=== PATIENT | male | born 1965 | race Caucasian/White ===

== ENCOUNTER 2018-08-23 11:31 | Inpatient (IN) | payer SELFPAY ==
[2018-08-23 11:48] VITALS: BMI 37.4
[2018-08-23] MEDS ORDERED: Morphine 4 MG/ML VIAL ONE (13:28)
[2018-08-23 13:30] LABS: BASO % 0.4 % (0.0-2.0); EOS # 0.3 K/uL (0.0-0.7); EOS % 4.3 % (0.0-4.0); HEMOGLOBIN 15.5 g/dL (12.0-18.0); LYMPH # 2.9 K/uL (1.0-4.3); LYMPH % 39.5 % (20.0-40.0); MEAN CELL VOLUME 91.6 fl (80.0-94.0); MEAN CORPUSCULAR HEMOGLOBIN 31.2 pg (27.0-31.0); MEAN CORPUSCULAR HGB CONC 34.1 g/dL (33.0-37.0); MEAN PLATELET VOLUME 8.4 fl (7.2-11.7); MONO # 0.7 K/uL (0.0-0.8); MONO % 9.6 % (0.0-10.0); NEUT # 3.3 K/uL (1.8-7.0); NEUT % 46.2 % (50.0-75.0); NRBC % 0.2 % (0.0-0.0); RBC 4.97 Mil/uL (4.40-5.90); RED CELL DISTRIBUTION WIDTH 14.1 % (11.5-14.5); WHITE BLOOD COUNT 7.2 K/uL (4.8-10.8)
[2018-08-23] MEDS ORDERED: Morphine 4 MG/ML VIAL IVP STA (13:34)
[2018-08-23 13:36] LABS: INR 0.9; PROTHROMBIN TIME 10.7 Seconds (9.8-13.1)
--- NOTE | 2018-08-23 13:50 | RAD ---
Date of service: 08/23/2018 HISTORY: possible admission COMPARISON: No prior. FINDINGS: LUNGS: No active pulmonary disease. PLEURA: No significant pleural effusion identified, no pneumothorax apparent. CARDIOVASCULAR: No aortic atherosclerotic calcification present OSSEOUS STRUCTURES: No significant abnormalities. VISUALIZED UPPER ABDOMEN: Normal. OTHER FINDINGS: None. IMPRESSION: No active disease.
--- NOTE | 2018-08-23 14:06 | ED PDOC ---
HPI: Back Time Seen by Provider: 08/23/18 12:36 Chief Complaint (Nursing): Back Pain Chief Complaint (Provider): Back Pain History Per: Patient History/Exam Limitations: no limitations Additional Complaint(s): Jeremy Rodriguez is a 53 year old male with no past medical history, presents to the emergency department with intractable pain caused by herniated disk. Patient follows up with Dr. Gonzales who advised him to come to the ED. Patient was found to be lying flat on stretcher in the ED. PMD: Dr. Gonzales Past Medical History Reviewed: Historical Data, Nursing Documentation, Vital Signs Vital Signs: Last Vital Signs Temp 97.8 F 08/23/18 12:23 Pulse 88 08/23/18 12:23 Resp 20 08/23/18 12:23 BP 111/70 08/23/18 12:23 Pulse Ox 98 08/23/18 12:23 - Medical History PMH: No Chronic Diseases - Surgical History Surgical History: No Surg Hx - Family History Family History: States: Unknown Family Hx - Immunization History Hx Tetanus Toxoid Vaccination: No Hx Influenza Vaccination: No Hx Pneumococcal Vaccination: No - Home Medications Home Medications: Ambulatory Orders Medication Instructions Recorded Celecoxib [celeBREX] 200 mg PO DAILY PRN 08/23/18 Dapagliflozin Propanediol [Farxiga] 10 mg PO DAILY 08/23/18 Fenofibrate,Micronized 200 mg PO HS 08/23/18 [Fenofibrate] Losartan [Cozaar] 50 mg PO DAILY 08/23/18 Metoprolol Tartrate [Lopressor] 100 mg PO Q12 08/23/18 Milk Thistle Seed Extract [Milk 1 cap PO DAILY 08/23/18 Thistle] [place]-3/Dha/Epa/Fish Oil [Epa-Dha 1 cap PO DAILY 08/23/18 720 Softgel] amLODIPine [Norvasc] 5 mg PO DAILY 08/23/18 metFORMIN [glucOPHAGE] 500 mg PO DAILY 08/23/18 traMADol [Ultram] 50 mg PO Q6 PRN 08/23/18 - Allergies Allergies/Adverse Reactions: Allergies Allergy/AdvReac Type Severity Reaction Status Date / Time No Known Allergies Allergy Verified 08/23/18 12:23 Review of Systems ROS Statement: Except As Marked, All Systems Reviewed And Found Negative Musculoskeletal: Positive for: Other (intractable pain caused by herniated disk) Physical Exam - Reviewed Nursing Documentation Reviewed: Yes Vital Signs Reviewed: Yes - Physical Exam Appears: Positive for: Non-toxic, In Acute Distress (lying flat on stretcher) Head Exam: Positive for: ATRAUMATIC, NORMOCEPHALIC Skin: Positive for: Normal Color, Warm, Dry Eye Exam: Positive for: Normal appearance, EOMI, PERRL ENT: Positive for: Normal ENT Inspection Neck: Positive for: Normal, Painless ROM, Supple Cardiovascular/Chest: Positive for: Regular Rate, Rhythm. Negative for: Murmur Respiratory: Positive for: Normal Breath Sounds. Negative for: Respiratory Distress Gastrointestinal/Abdominal: Positive for: Normal Exam, Soft. Negative for: Tenderness Back: Positive for: Normal Inspection. Negative for: L CVA Tenderness, R CVA Tenderness, Vertebral Tenderness Extremity: Positive for: Normal ROM (of both legs ), Other (Flexion at the hip worsens pain) - Laboratory Results Result Diagrams: 08/23/18 13:15 08/23/18 14:10 - ECG ECG Rhythm: Positive for: Sinus Rhythm (normal) O2 Sat by Pulse Oximetry: 98 (RA) Pulse Ox Interpretation: Normal Medical Decision Making Medical Decision Making: Initial Time: 12:40 A/P: Patient is experiencing intractable pain due to herniated disk and will be admitted for pain control. Provider spoke with Dr. Diggs who recommends Morphine and Flexeril for pain control. Plan: --EKG --Type and Screen --BMP --CBC with differential --PPT --PT --Chest X-ray --Urinalysis --Flexeril 10 mg PO --Morphine 4 mg IVP Time: 13:46 Chest X-ray FINDINGS: LUNGS: No active pulmonary disease. PLEURA: No significant pleural effusion identified, no pneumothorax apparent. CARDIOVASCULAR: No aortic atherosclerotic calcification present OSSEOUS STRUCTURES: No significant abnormalities. VISUALIZED UPPER ABDOMEN: Normal. OTHER FINDINGS: None. IMPRESSION: No active disease. Scribe Attestation: Documented by Poncho Mancia, acting as a scribe for Annie Gong MD. Provider Scribe Attestation: All medical record entries made by the Scribe were at my direction and personally dictated by me. I have reviewed the chart and agree that the record accurately reflects my personal performance of the history, physical exam, medical decision making, and the department course for this patient. I have also personally directed, reviewed, and agree with the discharge instructions and disposition.
[2018-08-23 14:43] LABS: BLOOD UREA NITROGEN 18 mg/dl (9-20); CALCIUM 9.4 mg/dL (8.4-10.2); GFR NON-AFRICAN AMERICAN > 60
[2018-08-23 15:02] LABS: URINE BILIRUBIN NEGATIVE (NEGATIVE); URINE BLOOD NEGATIVE (NEGATIVE); URINE CLARITY CLEAR (Clear); URINE COLOR STRAW (YELLOW); URINE GLUCOSE (UA) >=500 mg/dL (Normal); URINE LEUKOCYTE ESTERASE NEG Leu/uL (Negative); URINE PROTEIN NEGATIVE (NEGATIVE); URINE UROBILINOGEN 0.2-1.0 mg/dL (0.2-1.0)
--- NOTE | 2018-08-23 15:58 | CARD ---
APPROVED REPORT Date of service: 08/23/2018 EKG Measurement Heart [id number] <Conclusion> Normal sinus rhythm Normal ECG
[2018-08-24] MEDS ORDERED: Lactated Ringer's 1,000 ML IV SCH ×3 (05:30→15:00)
[2018-08-24] MEDS ORDERED: Absorbable Gelatin Sponge Size 12-7 ONE (07:29)
[2018-08-24] MEDS ORDERED: Thrombin Topical 5,000 Int Units Spray Kit ONE (07:29)
[2018-08-24] MEDS ORDERED: Lidocaine 1% w Epi 1:100,000 Inj ONE (07:29)
[2018-08-24] MEDS ORDERED: Bupivacaine HCl 0.25% PF (30 ml) Inj ONE (07:29)
--- NOTE | 2018-08-24 08:50 | CP.PCM.CON ---
History of Present Illness - History of Present Illness History of Present Illness: Neurosurgical consult: Dr. Gonzales Patient is a 53 y/o male with PMH of HTN, HLD and NIDDM who presents with severe lower back pain radiating to the RLE. He has has non-traumatic chronic lower back pain for many years which has progressively worsened over the past few months. The pain is constant, sharp and located at the right lower back. The pain is associated with frequent numbness and tingling traveling down RLE. His symptoms have prevented him from performing his usual activities as walking, sitting and standing. He has failed conservative means with oral medications/narcotics and physical therapy. He denies any saddle paresthesias or bowel/bladder dysfunction. He also denies CP/SOB/N/V/D/fever/dysuria/melena. Review of Systems - Review of Systems All systems: reviewed and no additional remarkable complaints except Review of Systems: as per HPI Past Patient History - Past Medical History & Family History Past Medical History?: Yes Past Family History: Reviewed and not pertinent - Past Social History Smoking Status: Former Smoker Alcohol: None Drugs: Denies - CARDIAC Hx Cardiac Disorders: Yes Hx Hypercholesterolemia: Yes Hx Hypertension: Yes - PULMONARY Hx Respiratory Disorders: No - HEENT Hx HEENT Problems: No - RENAL Hx Chronic Kidney Disease: No - ENDOCRINE/METABOLIC Hx Endocrine Disorders: Yes Other/Comment: pre/dm - HEMATOLOGICAL/ONCOLOGICAL Hx Blood Disorders: No - INTEGUMENTARY Hx Dermatological Problems: No - MUSCULOSKELETAL/RHEUMATOLOGICAL Hx Musculoskeletal Disorders: Yes Hx Falls: No Hx Herniated Disk: Yes - GASTROINTESTINAL Hx Gastrointestinal Disorders: No - GENITOURINARY/GYNECOLOGICAL Hx Genitourinary Disorders: No - PSYCHIATRIC Hx Psychophysiologic Disorder: No Hx Substance Use: No - SURGICAL HISTORY Hx Surgeries: No - ANESTHESIA Hx Anesthesia: No Hx Anesthesia Reactions: No Hx Malignant Hyperthermia: No Meds Allergies/Adverse Reactions: Allergies Allergy/AdvReac Type Severity Reaction Status Date / Time No Known Allergies Allergy Verified 08/23/18 12:23 - Medications Medications: Current Medications Lactated Ringer's (Lactated Ringer's) 1,000 mls @ 60 mls/hr IV .[id number] [facility] Last Admin: 08/24/18 06:15 Dose: 60 mls/hr Physical Exam - Constitutional Appears: Well, No Acute Distress - Head Exam Head Exam: ATRAUMATIC, NORMOCEPHALIC - Eye Exam Eye Exam: EOMI, Normal appearance, PERRL - ENT Exam ENT Exam: Mucous Membranes Moist - Respiratory Exam Respiratory Exam: Clear to Auscultation Bilateral, NORMAL BREATHING PATTERN - Cardiovascular Exam Cardiovascular Exam: +S1, +S2 - GI/Abdominal Exam GI & Abdominal Exam: Soft. absent: Tenderness - Back Exam Additional comments: all CN intact no lesions, no masses, no erythema midline tenderness, R paraspinal tenderness sensation diminished to R SP/DP/TN, intact L side motor intact EHL/FHL/TA/G b/l, 4/5 R HF/Q +R SLR in supine position neg clonus Results - Vital Signs Recent Vital Signs: Last Vital Signs Temp 98.1 F 08/24/18 08:19 Pulse 54 L 08/24/18 08:19 Resp 20 08/24/18 08:19 BP 133/73 08/24/18 08:19 Pulse Ox 98 08/24/18 08:19 - Labs Result Diagrams: 08/23/18 13:15 08/23/18 14:10 Labs: Laboratory Results - last 24 hr 08/23/18 08/23/18 08/23/18 13:15 13:15 13:15 WBC 7.2 RBC 4.97 Hgb 15.5 Hct 45.5 MCV 91.6 MCH 31.2 H MCHC 34.1 RDW 14.1 Plt Count 266 MPV 8.4 Neut % (Auto) 46.2 L Lymph % (Auto) 39.5 [place] % (Auto) 9.6 Eos % (Auto) 4.3 H Baso % (Auto) 0.4 Neut # (Auto) 3.3 Lymph # (Auto) 2.9 [place] # (Auto) 0.7 Eos # (Auto) 0.3 Baso # (Auto) 0.0 PT 10.7 INR 0.9 APTT 37.0 Sodium Potassium Chloride Carbon Dioxide Anion Gap BUN Creatinine Est GFR ( Amer) Est GFR (Non-Af Amer) Random Glucose Calcium Urine Color Urine Clarity Urine pH Ur Specific [place] Urine Protein Urine Glucose (UA) Urine Ketones Urine Blood Urine Nitrate Urine Bilirubin Urine Urobilinogen Ur Leukocyte Esterase Urine Microscopic WBC Blood Type O POSITIVE Blood Type Confirm Antibody Screen Negative BBK History Checked No verified bt 08/23/18 08/23/18 08/23/18 14:10 14:42 15:01 WBC RBC Hgb Hct MCV MCH MCHC RDW Plt Count MPV Neut % (Auto) Lymph % (Auto) [place] % (Auto) Eos % (Auto) Baso % (Auto) Neut # (Auto) Lymph # (Auto) [place] # (Auto) Eos # (Auto) Baso # (Auto) PT INR APTT Sodium 139 Potassium 4.3 Chloride 110 H Carbon Dioxide 21 L Anion Gap 12 BUN 18 Creatinine 0.8 Est GFR ( Amer) > 60 Est GFR (Non-Af Amer) > 60 Random Glucose 87 Calcium 9.4 Urine Color Straw Urine Clarity Clear Urine pH 6.0 Ur Specific [place] 1.015 Urine Protein Negative Urine Glucose (UA) >=500 Urine Ketones Negative Urine Blood Negative Urine Nitrate Negative Urine Bilirubin Negative Urine Urobilinogen 0.2-1.0 Ur Leukocyte Esterase Neg Urine Microscopic WBC < 1 Blood Type Blood Type Confirm O POSITIVE Antibody Screen BBK History Checked Assessment & Plan (1) Lumbar spondylosis Assessment and Plan: -Recommend OR today for lumbar microdiscectomy -NPO -Risks/benefits/alternatives were explained to patient who understands and agrees to proceed with above procedure -above d/w Dr. Gonzales in agreement Status: Acute
[2018-08-24] MEDS ORDERED: Succinylcholine 200 mg/10 ml Inj IV ONE (10:56)
[2018-08-24] MEDS ORDERED: Rocuronium 10 mg/ml (5 ml) ONE (10:56)
[2018-08-24] MEDS ORDERED: Phenylephrine 10 mg/ml Inj ONE (10:56)
[2018-08-24] MEDS ORDERED: Propofol 10 mg/ml Inj (20 ML) ONE ×2 (10:56→13:31)
[2018-08-24] MEDS ORDERED: Lidocaine 4% (Laryng-O-Jet) Kit MM ONE (10:56)
[2018-08-24] MEDS ORDERED: Dexamethasone 4 mg/1 ml ONE ×2 (11:01→13:34)
--- NOTE | 2018-08-24 11:28 | CP.PCM.HP ---
History of Present Illness - History of Present Illness History of Present Illness: 53 y/o male with PMH of HTN, HLD and Prediabetes who presents with severe lower back pain radiating to the RLE. He has non-traumatic chronic lower back pain for many years which has progressively worsened over the past few months. The pain is constant, sharp and located at the right lower back associated with frequent numbness in RLE. He denies any saddle paresthesias or bowel/bladder dysfunction. He also denies CP/SOB/N/V/D/fever/dysuria/melena. Patient is here for vacation, he live in [facility]. PMH: HTN, HLD and Prediabetes, chronic back pain. PSH: denies FH: noncontributory NKDA Meds: see below SH: denies etoh, tobacco or drugs Present on Admission - Present on Admission Any Indicators Present on Admission: No Review of Systems - Review of Systems All systems: reviewed and no additional remarkable complaints except (HPI) Past Patient History - Past Medical History & Family History Past Medical History?: Yes Past Family History: Reviewed and not pertinent - Past Social History Smoking Status: Former Smoker Alcohol: None Drugs: Denies - CARDIAC Hx Cardiac Disorders: Yes Hx Hypercholesterolemia: Yes Hx Hypertension: Yes - PULMONARY Hx Respiratory Disorders: No - HEENT Hx HEENT Problems: No - RENAL Hx Chronic Kidney Disease: No - ENDOCRINE/METABOLIC Hx Endocrine Disorders: Yes Other/Comment: pre/dm - HEMATOLOGICAL/ONCOLOGICAL Hx Blood Disorders: No - INTEGUMENTARY Hx Dermatological Problems: No - MUSCULOSKELETAL/RHEUMATOLOGICAL Hx Musculoskeletal Disorders: Yes Hx Falls: No Hx Herniated Disk: Yes - GASTROINTESTINAL Hx Gastrointestinal Disorders: No - GENITOURINARY/GYNECOLOGICAL Hx Genitourinary Disorders: No - PSYCHIATRIC Hx Psychophysiologic Disorder: No Hx Substance Use: No - SURGICAL HISTORY Hx Surgeries: No - ANESTHESIA Hx Anesthesia: No Hx Anesthesia Reactions: No Hx Malignant Hyperthermia: No Meds Allergies/Adverse Reactions: Allergies Allergy/AdvReac Type Severity Reaction Status Date / Time No Known Allergies Allergy Verified 08/23/18 12:23 Physical Exam - Constitutional Appears: No Acute Distress - Head Exam Head Exam: NORMAL INSPECTION - Respiratory Exam Respiratory Exam: Clear to Auscultation Bilateral - Cardiovascular Exam Cardiovascular Exam: REGULAR RHYTHM, +S1, +S2 - GI/Abdominal Exam GI & Abdominal Exam: Normal Bowel Sounds, Soft. absent: Distended, Tenderness - Extremities Exam Extremities exam: Negative for: calf tenderness - Back Exam Back exam: NORMAL INSPECTION. absent: vertebral tenderness (lumbar spine) - Neurological Exam Neurological exam: Alert, Oriented x3 - Skin Skin Exam: Dry, Warm Results - Vital Signs Recent Vital Signs: Last Vital Signs Temp 98.1 F 08/24/18 08:19 Pulse 54 L 08/24/18 08:19 Resp 20 08/24/18 08:19 BP 133/73 08/24/18 08:19 Pulse Ox 98 08/24/18 08:19 - Labs Result Diagrams: 08/23/18 13:15 08/23/18 14:10 Labs: Laboratory Results - last 24 hr 08/23/18 08/23/18 08/23/18 13:15 13:15 13:15 WBC 7.2 RBC 4.97 Hgb 15.5 Hct 45.5 MCV 91.6 MCH 31.2 H MCHC 34.1 RDW 14.1 Plt Count 266 MPV 8.4 Neut % (Auto) 46.2 L Lymph % (Auto) 39.5 [place] % (Auto) 9.6 Eos % (Auto) 4.3 H Baso % (Auto) 0.4 Neut # (Auto) 3.3 Lymph # (Auto) 2.9 [place] # (Auto) 0.7 Eos # (Auto) 0.3 Baso # (Auto) 0.0 PT 10.7 INR 0.9 APTT 37.0 Sodium Potassium Chloride Carbon Dioxide Anion Gap BUN Creatinine Est GFR ( Amer) Est GFR (Non-Af Amer) Random Glucose Calcium Urine Color Urine Clarity Urine pH Ur Specific [place] Urine Protein Urine Glucose (UA) Urine Ketones Urine Blood Urine Nitrate Urine Bilirubin Urine Urobilinogen Ur Leukocyte Esterase Urine Microscopic WBC Blood Type O POSITIVE Blood Type Confirm Antibody Screen Negative BBK History Checked No verified bt 08/23/18 08/23/18 08/23/18 14:10 14:42 15:01 WBC RBC Hgb Hct MCV MCH MCHC RDW Plt Count MPV Neut % (Auto) Lymph % (Auto) [place] % (Auto) Eos % (Auto) Baso % (Auto) Neut # (Auto) Lymph # (Auto) [place] # (Auto) Eos # (Auto) Baso # (Auto) PT INR APTT Sodium 139 Potassium 4.3 Chloride 110 H Carbon Dioxide 21 L Anion Gap 12 BUN 18 Creatinine 0.8 Est GFR ( Amer) > 60 Est GFR (Non-Af Amer) > 60 Random Glucose 87 Calcium 9.4 Urine Color Straw Urine Clarity Clear Urine pH 6.0 Ur Specific [place] 1.015 Urine Protein Negative Urine Glucose (UA) >=500 Urine Ketones Negative Urine Blood Negative Urine Nitrate Negative Urine Bilirubin Negative Urine Urobilinogen 0.2-1.0 Ur Leukocyte Esterase Neg Urine Microscopic WBC < 1 Blood Type Blood Type Confirm O POSITIVE Antibody Screen BBK History Checked Assessment & Plan - Assessment and Plan (Free Text) Assessment: 53 yo male with PMH of HTN, prediabetes and HLD with herniated disc now with radiculopathy. Plan: - Going to OR today for lumbar microdiscectomy - NPO - labs and xr reviewed wnl - pain management - medically cleared for surgery - rest of plan as ordered Patient seen an examined with Dr Diggs
[2018-08-24] MEDS ORDERED: ePHEDrine 50 mg/ml Inj ONE (12:39)
[2018-08-24] MEDS ORDERED: Midazolam 2 MG/2 ML VIAL ONE (12:40)
[2018-08-24] MEDS ORDERED: Lactated Ringer's 1,000 ML IV ONE ×2 (12:50→15:30)
[2018-08-24] MEDS ORDERED: Lidocaine/Epi 1% 1:100000 20 ML IJ ONE (13:20)
[2018-08-24] MEDS ORDERED: Desflurane Inhalation Anesthetic Liq (240 ml) ONE (13:34)
[2018-08-24] MEDS ORDERED: HEMOSTATIC MATRIX 10 ML DIS.NEEDLE TOP ONE ×2 (13:36→13:55)
[2018-08-24] MEDS ORDERED: Neostigmine 1:1000 (1 mg/ml) Inj ONE (13:42)
[2018-08-24] MEDS ORDERED: Absorbable Gelatin Sponge Size 12-7 TP ONE ×2 (13:42→14:01)
[2018-08-24] MEDS ORDERED: Thrombin Topical 5,000 Int Units Spray Kit TOP ONE ×2 (13:42→14:01)
[2018-08-24] MEDS ORDERED: Bupivacaine HCl 0.25% PF (30 ml) Inj IJ ONE ×2 (14:12→14:22)
[2018-08-24] MEDS ORDERED: Oxycodone/Acetaminophen 5/325 mg Tab PO PRN ×2 (14:38)
--- NOTE | 2018-08-24 14:48 | PCM.SURG1 ---
Surgeon's Initial Post Op Note - Surgeon's Notes Surgeon: Jean-Pierre Gonzales MD Environmental Remediation Engineer: Momo Sewell PA-C Type of Anesthesia: General Endo Anesthesia Administered By: Fabiano TRINIDAD Pre-Operative Diagnosis: Lumbar spondylosis Operative Findings: L5-S1 spondylosis and HNP Post-Operative Diagnosis: as above Operation Performed: Right L5-S1 laminotomy and microdiscectomy Specimen/Specimens Removed: none Estimated Blood Loss: EBL {In ML}: 25 Blood Products Given: N/A Drains Used: Vijay Adorno (x1) Post-Op Condition: Good Date of Surgery/Procedure: 08/24/18 Time of Surgery/Procedure: 12:50
[2018-08-24] MEDS ORDERED: oxyCODONE 5 mg Immediate Release Tab PO PRN (16:32)
--- NOTE | 2018-08-24 16:58 | RAD ---
Date of service: 08/24/2018 PROCEDURE: Intraoperative Fluoroscopy. HISTORY: LUMBAR MICRODISCECTOMY FINDINGS: Fluoroscopic assistance was provided for orthopedic surgical procedure. Please refer to the operative report from NADIR Dale DR, MD. Total fluoroscopic time (continuous mode) utilized during the procedure 5.1 (seconds). Total exam DLP: 3.89 (mGy).
[2018-08-24] MEDS ORDERED: ceFAZolin 2 GM in Sodium Chloride 0.9% 100 ML IVPB SCH ×2 (17:00→21:00)
[2018-08-24] MEDS: Insulin Regular 100 units/ml SC SCH ×2 (18:45→22:12)
[2018-08-24] MEDS: oxyCODONE 10 mg Immediate Release Tab PO PRN (22:15)
--- NOTE | 2018-08-25 02:03 | OP ---
PROCEDURE DATE: 08/24/2018 PREOPERATIVE DIAGNOSIS: Lumbar herniated disk at L5-S1. POSTOPERATIVE DIAGNOSIS: Lumbar herniated disk at L5-S1. PROCEDURE: Right L5-S1 hemilaminotomy, medial facetectomy, foraminotomy, decompression, and finding hard disk . SURGEON: Jean-Pierre Gonzales MD RETAIL BUYER: SHANON Be. Momo Sewell is a physician pediatric medical assistant, who helped me perform the surgery, stayed throughout the case from the beginning to the end. DESCRIPTION OF PROCEDURE: The patient was brought to the operating room, and after general endotracheal anesthesia, placed in the prone position under Vijay table. Care was taken to protect all the pressure points. Back of the lumbar area was thoroughly prepped and draped in standard sterile manner after marking for the skin incision for lumbar laminectomy at L5-S1. After prepping and draping the area, the skin has been incised. Bleeding skins had been controlled with bipolar pressure test operator. After using a Bovie pressure test operator, paraspinal muscles had been detached, attachments of spinous process, lamina of L5-S1 on the right side. Meredith retractor has been applied to alter the facet joint of L5-S1 and x-ray has been confirmed at this level. Under microscopic magnification and illumination, the lamina of L5-S1 and medial part of the L5-S1 have been drilled. Drilling was continued on the top and bottom of the ligamentum flavum. Drilling was also continued on the medial part of the facets until the turn of ligamentum had been seen. Once this had been done, thinned out the lamina, medial part of the facets and ligamentum flavum had been removed, and there was nerve root, and dura has been decompressed. There is a herniated disc, however, this was found to be hard like a bone, so further no discectomy has been performed. However, midline has been decompressed by spinous process ligament. Foraminotomy was performed. After this, hemostasis was best achieved. Vijay drain was placed in the wound, brought out through a separate stab neck skin incision. Muscles and fascia were closed with 1 Vicryl, subcutaneous tissue with 3-0 Vicryl, and skin has been with intradermal 3-0 Vicryl stitches. The patient tolerated the procedures. After procedure, mobilized to the recovery room in stabilized condition. Jean-Pierre Gonzales MD [facility] # [phone]
[2018-08-25] MEDS ORDERED: ceFAZolin 2 GM in Sodium Chloride 0.9% 100 ML IVPB SCH (05:00)
[2018-08-25 06:30] LABS: HEMOGLOBIN 14.2 g/dL (12.0-18.0); MEAN CELL VOLUME 91.7 fl (80.0-94.0); MEAN CORPUSCULAR HEMOGLOBIN 31.3 pg (27.0-31.0); MEAN CORPUSCULAR HGB CONC 34.1 g/dL (33.0-37.0); RBC 4.53 Mil/uL (4.40-5.90); RED CELL DISTRIBUTION WIDTH 14.1 % (11.5-14.5)
[2018-08-25 06:41] LABS: BLOOD UREA NITROGEN 11 mg/dl (9-20); GFR NON-AFRICAN AMERICAN > 60
[2018-08-25] MEDS: Insulin Regular 100 units/ml SC SCH ×3 (09:08→17:06)
--- NOTE | 2018-08-25 09:50 | CP.PCM.PN ---
Subjective - Date & Time of Evaluation Date of Evaluation: 08/25/18 Time of Evaluation: 08:00 - Subjective Subjective: Patient seen and examined sitting bedside comfortable. Patient has minimal complaints of pain, required oral pain medications once since yesterday. He is able to ambulate without difficulties. He is very pleased due to the cessation of his pain and RLE symptoms following the procedure. He denies CP/SOB/N/V/D/fever. Objective - Vital Signs/Intake and Output Vital Signs (last 24 hours): Temp Pulse Resp BP Pulse Ox 97.9 F 67 20 125/72 96 08/25/18 08:32 08/25/18 09:07 08/25/18 08:32 08/25/18 09:07 08/25/18 08:32 Intake and Output: 08/25/18 08/25/18 06:59 18:59 Intake Total 600 Output Total 20 Balance 580 - Medications Medications: Current Medications Acetaminophen (Tylenol 325mg Tab) 650 mg PO Q4 PRN PRN Reason: Fever 101 degrees fahrenheit Amlodipine Besylate (Norvasc) 5 mg PO DAILY [facility] Last Admin: 08/25/18 09:06 Dose: 5 mg Benzonatate (Tessalon Perles) 200 mg PO Q8 PRN PRN Reason: Cough Last Admin: 08/25/18 00:35 Dose: 200 mg Celecoxib (Celebrex) 200 mg PO DAILY PRN PRN Reason: Pain, moderate (4-7) Cyclobenzaprine HCl (Flexeril) 10 mg PO Q8 PRN PRN Reason: Muscle spasm Docusate Sodium (Colace) 100 mg PO BID [facility] Last Admin: 08/25/18 09:05 Dose: Not Given Fenofibrate (Tricor) 145 mg PO HS [facility] Last Admin: 08/24/18 21:14 Dose: 145 mg Hydromorphone HCl (Dilaudid) 0.5 mg IVP Q10M PRN PRN Reason: Pain, moderate (4-7) Last Admin: 08/24/18 15:40 Dose: 0.5 mg Lactated Ringer's (Lactated Ringer's) 1,000 mls @ 60 mls/hr IV .[id number] [facility] Last Admin: 08/24/18 06:15 Dose: 60 mls/hr Lactated Ringer's (Lactated Ringer's) 1,000 mls @ 100 mls/hr IV .Q10H HAYDEE Lactated Ringer's (Lactated Ringer's) 1,000 mls @ 125 mls/hr IV .Q8H HAYDEE Acetaminophen (Ofirmev) 100 mls @ 400 mls/hr IVPB Q8H [facility]; Protocol Stop: 08/25/18 16:31 Last Admin: 08/25/18 00:15 Dose: 400 mls/hr Cefazolin Sodium 2 gm/ Sodium (Chloride) 100 mls @ 100 mls/hr IVPB Q8@0500,1300,2100 [facility]; Protocol Stop: 08/25/18 21:59 Last Admin: 08/25/18 04:23 Dose: 100 mls/hr Insulin Human Regular (Humulin R) 0 units SC ACHS [facility]; Protocol Last Admin: 08/25/18 09:08 Dose: Not Given Losartan Potassium (Cozaar) 50 mg PO DAILY [facility] Last Admin: 08/25/18 09:07 Dose: 50 mg Metformin HCl (Glucophage) 500 mg PO DAILY [facility] Last Admin: 08/25/18 09:07 Dose: 500 mg Metoprolol Tartrate (Lopressor) 100 mg PO Q12 [facility] Last Admin: 08/25/18 09:07 Dose: 100 mg Morphine Sulfate (Morphine) 2 mg IVP Q4 PRN PRN Reason: Pain, severe (8-10) Ondansetron HCl (Zofran Inj) 4 mg IVP ONCE PRN PRN Reason: Nausea/Vomiting Oxycodone HCl (Oxycodone Immediate Release Tab) 5 mg PO Q6 PRN PRN Reason: Pain, Mild (1-3) Oxycodone HCl (Oxycodone Immediate Release Tab) 10 mg PO Q6 PRN PRN Reason: Pain, severe (8-10) Last Admin: 08/24/18 22:15 Dose: 10 mg Tramadol HCl (Ultram) 50 mg PO Q6 PRN PRN Reason: Pain, severe (8-10) - Labs Labs: 08/25/18 05:50 08/25/18 05:50 PT 10.7 Seconds (9.8-13.1) 08/23/18 13:15 INR 0.9 08/23/18 13:15 APTT 37.0 Seconds (25.6-37.1) 08/23/18 13:15 - Extremities Exam Additional comments: Mild swelling and tenderness about surgical site Dressings CDI ADRIANA drain intact with mild bloody drainage (70cc total output postop) sensation intact SP/DP/TN b/l motor intact EHL/FHL/TA/G b/l all CN intact neg clonus Assessment and Plan (1) Lumbar spondylosis Assessment & Plan: POD#1 s/p R L5-S1 laminotomy and microdiscectomy doing very well -PT/OT WBAT -activity as tolerated -will remove drain in evening, continue IV abx until removed -Clear to discharge home once drain removed -F/u in office within 7-10 days -above d/w Dr. Gonzales in agreement Status: Acute
[2018-08-25] MEDS: oxyCODONE 10 mg Immediate Release Tab PO PRN (11:20)
[2018-08-25] MEDS ORDERED: ceFAZolin IV 2 gm in Dextrose 2 GM/50 ML BAG IVPB SCH (13:00)
[2018-08-25 15:53] VITALS: BP 122/63; PULSE 73; RESP 18; TEMP 98.2; O2SAT 97
== END 2018-08-25 17:45 | disposition home or self-care (01) | DRG 520 ==
LOC: H.ER 11:31 → H.ERHOLD 12:48 → H.MEDSURG1 22:35
PROVIDERS: ADMIT Family Medicine; ATTEND Family Medicine
PROC: 00NY0ZZ Release Lumbar Spinal Cord, Open Approach (ICD-10-PCS; principal; 2018-08-24 13:00)
DX: M51.16 Intervertebral disc disorders with radiculopathy, lumbar region (principal); M47.26 Other spondylosis with radiculopathy, lumbar region; G89.29 Other chronic pain; E11.9 Type 2 diabetes mellitus without complications; I10 Essential (primary) hypertension; E78.5 Hyperlipidemia, unspecified; E78.00 Pure hypercholesterolemia, unspecified; Z79.84 Long term (current) use of oral hypoglycemic drugs; Z87.891 Personal history of nicotine dependence